=== PATIENT | female | born 1935 | race Two or more races ===

== ENCOUNTER 2024-03-10 12:40 | Emergency (ER) | payer OTHER ==
[~2024-03-10] VITALS: Ht 157.5 cm; Wt 44.9 kg
[2024-03-10] MEDS ORDERED: COZAAR25 MG PO (13:01)
[2024-03-10] MEDS ORDERED: NEURONTIN300 MG PO (13:02)
[2024-03-10] MEDS ORDERED: PROTONIX40 MG PO (13:02)
[2024-03-10] MEDS ORDERED: CYMBALTA60 MG PO (13:02)
[2024-03-10] MEDS ORDERED: [UNRECOGNIZED DRUG - OTHER] IV (13:03)
[2024-03-10 13:50] LABS: HEMATOCRIT 31.8 % (36.0-45.00); HEMOGLOBIN 10.6 g/dL (12.0-15.00); MEAN CELL VOLUME 87.5 fL (80.00-100.00); MEAN CORPUSCULAR HEMOGLOBIN 29.3 pg (27.00-32.0); MEAN CORPUSCULAR HGB CONC 33.4 g/dl (32.0-36.0); PLATELET COUNT 234 K/uL (150-450); RED BLOOD COUNT 3.63 M/uL (4.00-6.00); RED CELL DISTRIBUTION WIDTH 14.2 % (11.5-14.5)
[2024-03-10 13:55] LABS: URINE APPEARANCE Clear; URINE BILIRRUBIN Negative (NEGATIVE); URINE BLOOD Negative; URINE COLOR Dark Yellow; URINE GLUCOSE Negative (NEGATIVE); URINE KETONE Negative (NEGATIVE); URINE LEUKOCYTE Small; URINE NITRATE Negative; URINE PROTEIN 30 (NEGATIVE)
[2024-03-10 13:58] LABS: URINE CAST 1.83 uL (0.0-1.40); URINE EPITHELIAL CELLS 31.5 uL (0.0-38.8); URINE RBC 13.1 uL (0.0-20.8); URINE WBC 37.5 uL (0.0-23.2)
[2024-03-10 14:15] LABS: URINE EPITHELIAL CELLS 0-4 /HPF
== END 2024-03-10 15:39 | disposition home or self-care (01) ==
LOC: ER 12:42
PROVIDERS: Emergency Medicine
DX: R10.9 Unspecified abdominal pain (principal); R10.2 Pelvic and perineal pain; Z88.0 Allergy status to penicillin; Z88.2 Allergy status to sulfonamides